=== PATIENT | female | born 1995 | race American Indian/Alaskan Native ===

== ENCOUNTER 2020-04-08 09:38 | Inpatient (IN) | payer MEDICAID ==
[2020-04-08] MEDS ORDERED: BUTORPHANOL 2 MG/1 ML INJ IV PRN (13:41)
[2020-04-08] MEDS ORDERED: TERBUTALINE 1 MG/1 ML INJ SUB-Q PRN (13:41)
[2020-04-08] MEDS ORDERED: ePHEDrine SULFATE 50 MG/1 ML INJ IV PRN ×2 (13:41→17:19)
[2020-04-08] MEDS ORDERED: MINERAL OIL 30 ML ORAL LIQD PO PRN (13:41)
[2020-04-08] MEDS ORDERED: LIDOCAINE (2%) 20 MG/1 ML VIAL 20 ML MDV INFILTRATI ONE (13:41)
[2020-04-08] MEDS ORDERED: LACTATED RINGERS 1,000 ML IV SCH (13:45)
[2020-04-08] MEDS ORDERED: OXYTOCIN DRIP 30 UNITS/500 ML BAG IV SCH ×2 (14:00)
[2020-04-08 14:53] LABS: Hematocrit 35.3 % (30.3-42.9); Hemoglobin 11.7 gm/dl (10.1-14.3); Mean Corpuscular HGB Conc 33 % (30-34); Mean Corpuscular Volume 75 fl (79-97); Platelet Count 219 K/mm3 (140-440); Red Blood Count 4.74 M/mm3 (3.65-5.03); Red Cell Distribution Width 15.3 % (13.2-15.2)
[2020-04-08] MEDS ORDERED: NALOXONE 2 MG/2 ML INJ IV PRN (17:19)
--- NOTE | 2020-04-08 17:20 | Anesthesia Consultation ---
Anesthesia Consult and Med Hx Date of service: 04/08/20 - Airway Anesthetic Teeth Evaluation: Good ROM Head & Neck: Adequate Mental/Hyoid Distance: Adequate Mallampati Class: Class II Intubation Access Assessment: Probably Good - Pulmonary Exam CTA: Yes - Cardiac Exam Cardiac Exam: RRR - Pre-Operative Health Status ASA Pre-Surgery Classification: ASA2 Proposed Anesthetic Plan: Epidural - Pulmonary Hx Asthma: No - Cardiovascular System Hx Hypertension: No - Central Nervous System Hx Seizures: No Hx Psychiatric Problems: No - Endocrine Hx Renal Disease: No Hx Hypothyroidism: No Hx Hyperthyroidism: No - Hematic Hx Anemia: No Hx Sickle Cell Disease: No - Other Systems Hx Alcohol Use: No
[2020-04-08] MEDS ORDERED: fentaNYL-BUPIV 2 MCG/ML-0.125% 200 MCG/100 ML BAG EPIDURAL SCH (18:00)
--- NOTE | 2020-04-08 18:17 | Progress Note ---
Labor Epidural - Labor Epidural Start Time: 17:24 Stop Time: 17:36 Performed by:: SHAHZAD JONES Procedure: Patient is requesting epidural for labor pain. H&P, and labs reviewed. Procedure explained, questions answered, consent obtained. Patient in sitting position with blood pressure cuff and pulse ox on and working. Timeout performed immediately before start of procedure. Sterile betadine prep/drape. 3 mL 1% lidocaine skin wheal at L[3]-L[4]. 18-gauge Gnip epidural needle advanced to [id number] with saline at [7] cm. Epidural dexmedetomidine [30] mcg administered. Epidural catheter advanced to [12] cm, negative aspiration for blood and csf, negative test dose 3 ml 1.5% lidocaine with epinephrine. Sterile steri-strips and tegaderm applied, followed by tape reinforcement. Patient tolerated procedure well. Eric PUENTES
--- NOTE | 2020-04-08 19:14 | Procedure Note ---
OB Delivery Note - Delivery Date of Delivery: 04/08/20 Surgeon: SUZY DIAZ Estimated blood loss: 200cc - Vaginal Delivery presentation: vertex Delivery position: OA Intrapartum events: none Delivery induction: none Delivery augmentation: pitocin Delivery monitor: external FHT, external uterine Route of delivery: Delivery placenta: spontaneous Delivery cord: 3 umbilical vessels Episiotomy: none Delivery laceration: none Anesthesia: epidural Delivery comments: Viable female delivered over an intact perineum without difficulty. There was no nuchal cord noted. Apgars 8 and 9. Weight . Infant had spontaneous cry and was placed on maternal abdomen. The cord was clamped and cut when it was nonpulsating. The placenta was delivered spontaneously and intact with a three-vessel cord. There were no lacerations noted. There was excellent hemostasis at the end the procedure. Of note the patient does have some mild cervical prolapse. The patient tolerated the procedure well. - A at 1 minute: 8 at 5 minutes: 9 Infant Gender: Female
[2020-04-08] MEDS ORDERED: LANOLIN/ZINC/DIMETHICONE (LANSINOH) 7 GM TP PRN (23:21)
[2020-04-08] MEDS ORDERED: KETOROLAC 30 MG/1 ML INJ IV PRN (23:21)
[2020-04-08] MEDS ORDERED: PROMETHAZINE 25 MG RECT SUPP PR PRN (23:21)
[2020-04-08] MEDS ORDERED: PROMETHAZINE 25 MG TAB PO PRN (23:21)
[2020-04-08] MEDS ORDERED: MAGNESIUM HYDROXIDE (MOM) ORAL LIQD UDC PO PRN (23:21)
[2020-04-08] MEDS ORDERED: ONDANSETRON 4 MG/2 ML INJ IV PRN (23:21)
[2020-04-08] MEDS ORDERED: diphenhydrAMINE 25 MG CAP PO PRN (23:21)
[2020-04-08] MEDS ORDERED: WITCH HAZEL/ GLYCERIN PAD TP PRN (23:21)
[2020-04-09] MEDS: DOCUSATE SODIUM 100 MG CAP PO SCH ×3 (00:41→23:28)
[2020-04-09] MEDS: IBUPROFEN 600 MG TAB PO SCH ×4 (00:41→23:28)
[2020-04-09] MEDS: HYDROcodone/ACETAMINOPHEN 5-325 MG TAB PO PRN ×2 (04:05→16:56)
[2020-04-09] MEDS ORDERED: MEASLES, MUMPS & RUBELLA 12,500 UNIT/0.5 ML VACCINE SUB-Q ONE (06:00)
[2020-04-09] MEDS: PRENATAL VIT27-FE FUMARATE-FOLIC ACID VIT TAB PO SCH (10:14)
[2020-04-09 14:36] LABS: Hematocrit 34.6 % (30.3-42.9); Hemoglobin 11.2 gm/dl (10.1-14.3)
--- NOTE | 2020-04-09 15:56 | Post Anesthesia Evaluation ---
- Post Anesthesia Evaluation Patient Participated: Yes Airway Patent: Yes Stable Respiratory Function: Yes Nausea/Vomiting: No Temp > 96.8F: Yes Pain Manageable: Yes Adequeate Hydration: Yes Anesthesia Complications: No Block Receding Appropriately: Yes
[2020-04-10] MEDS: IBUPROFEN 600 MG TAB PO SCH (06:14)
--- NOTE | 2020-04-10 08:53 | Discharge Summary ---
Providers - Providers Date of Admission: 04/08/20 14:48 Date of discharge: 04/10/20 Attending physician: SUZY DIAZ Primary care physician: SUZY DIAZ Hospitalization Reason for admission: active labor Delivery: Episiotomy: none Laceration: none Other procedures: none complications: none Discharge diagnosis: IUP at term delivered baby: female Hospital course: unremarkable Condition at discharge: Good Disposition: DC-01 TO HOME OR SELFCARE Plan - Discharge Medications Prescriptions: Ibuprofen [Motrin] 800 mg PO Q8HR PRN #40 tablet PRN Reason: Pain, Mild (1-3) HYDROcodone/APAP 5-325 [[place] 5/325] 1 each PO Q6HR PRN #15 tablet PRN Reason: Pain - Provider Discharge Summary Activity: routine, no sex for 6 weeks, no heavy lifting 4 weeks, no strenuous exercise Diet: routine Instructions: routine Additional instructions: [] Smoking cessation referral if applicable(refer to patient education folder for contact #) [] Refer to [facility] Booklet Call your doctor immediately for: * Fever > 100.5 * Heavy vaginal bleeding ( >1 pad per hour) * Severe persistent headache * Shortness of breath * Reddened, hot, painful area to leg or breast * Drainage or odor from incision. * Keep incision clean and dry at all times and follow doctor's instructions regarding bathing/showering - Follow up plan Follow up: SUZY DIAZ MD [Primary Care Provider] - 6 Weeks Forms: [facility] Discharge Summary
[2020-04-10 09:04] VITALS: BP 101/60
[2020-04-10] MEDS: DOCUSATE SODIUM 100 MG CAP PO SCH (10:15)
[2020-04-10] MEDS: PRENATAL VIT27-FE FUMARATE-FOLIC ACID VIT TAB PO SCH (10:25)
--- NOTE | 2020-04-11 11:46 | History and Physical Report ---
History of Present Illness Date of examination: 04/08/20 Date of admission: 04/08/20 14:48 Chief complaint: I'm in labor History of present illness: Pt is a 24 year old who presents in active labor and dilated to 4 cm at 39.5 weeks with EDC 04/10/20. Her course was complicated by gonorrhea in the first trimester that was treated with a normal test of cure. She is GBS negative. Past History Past Medical History: no pertinent history Past Surgical History: no surgical history Family/Genetic History: none Social history: single - Obstetrical History Expected Date of Delivery: 04/10/20 Actual Gestation: 40 Week(s) 1 Day(s) : 3 Para: 2 Number of Living Children: 2 Medications and Allergies Allergies Allergy/AdvReac Type Severity Reaction Status Date / Time No Known Allergies Allergy Unverified 04/08/20 13:40 Home Medications Medication Instructions Recorded Confirmed Last Taken Type HYDROcodone/APAP 5-325 [[place] 1 each PO Q6HR PRN #15 tablet 04/08/20 Unknown Rx 5/325] Ibuprofen [Motrin] 800 mg PO Q8HR PRN #40 tablet 04/08/20 Unknown Rx Review of Systems All systems: negative Genitourinary: contractions - Vital Signs Vital signs: Vital Signs Pulse BP Pulse Ox 95 H 111/64 98 04/08/20 10:10 04/08/20 10:10 04/08/20 10:10 Temp Pulse Resp BP Pulse Ox 98.3 F 84 18 101/60 100 04/10/20 08:10 04/10/20 08:10 04/10/20 08:10 04/10/20 08:10 04/10/20 08:10 - Physical Exam Breasts: Cardiovascular: Regular rate, Normal S1, Normal S2 Abdomen: Positive: normal appearance, soft, normal bowel sounds. Negative: distention, tenderness Vulva: both: normal Vagina: Positive: normal moisture. Negative: discharge Cervix: Negative: lesion, discharge Uterus: Positive: normal size, normal contour Adnexa: both: normal Anus/Rectum: Positive: normal perianal skin, heme negative. Negative: rectal mass, hemorrhoids Extremities: Deep Tendon Reflex Grade: Normal +2 - Obstetrical Cervical Dilatation: 4 Cervical Effacement Percentage: 70 station: -1 Uterine Contraction Pattern: Regular Uterine Contraction Intensity: Moderate Results Result Diagrams: 04/09/20 13:38 All other labs normal. Assessment and Plan IUP at 39.4 weeks in active labor. Admit for L&D. Epidural when ready. anticipa te .
== END 2020-04-10 18:52 | disposition home or self-care (01) | DRG 775 ==
LOC: TRG 09:38 → APU 09:39 → TRG 14:47 → LD 14:48 → OB 21:57
PROVIDERS: ADMIT Obstetrics & Gynecology; ATTEND Obstetrics & Gynecology
PROC: 10E0XZZ Delivery of Products of Conception, External Approach (ICD-10-PCS; principal; 2020-04-08)
PROC: 3E0R3BZ Introduction of Anesthetic Agent into Spinal Canal, Percutaneous Approach (ICD-10-PCS; 2020-04-08)
PROC: 00HU33Z Insertion of Infusion Device into Spinal Canal, Percutaneous Approach (ICD-10-PCS; 2020-04-08)
PROC: 3E0234Z Introduction of Serum, Toxoid and Vaccine into Muscle, Percutaneous Approach (ICD-10-PCS; 2020-04-09)
DX: O80 Encounter for full-term uncomplicated delivery (principal); Z37.0 Single live birth; Z20.828 Contact with and (suspected) exposure to other viral communicable diseases; Z3A.40 40 weeks gestation of pregnancy; Z79.899 Other long term (current) drug therapy; Z23 Encounter for immunization
CPT/HCPCS: 36415; 59025; 85014; 85018; 85027; 86592; 86850; 86900; 86901; 96360; 96366; 96368; G0378; J0595; J2590; J7120; U0003